=== PATIENT | female | born 1965 | race Caucasian/White ===

== ENCOUNTER 2023-07-31 11:24 | Emergency (ER) | payer OTHER, SELFPAY ==
[2023-07-31 11:26] VITALS: BP 165/98
[2023-07-31 12:19] VITALS: BMI 27.0
[2023-07-31] MEDS: TORADOL 15 MG IV (12:29)
[2023-07-31 12:42] LABS: % Basophils 0.7 % (0-2); % Eosinophils 1.4 % (0-6); % Immature Granulocytes 0.2 % (0-0.5); % Lymphocytes 30.6 % (20.5-51.1); % Neutrophils 59.1 % (42.2-75.2); Absolute Eosinophils 0.1 10^3/uL (0-0.7); Absolute Lymphocytes 1.3 10^3/uL (1.2-3.4); Absolute Monocytes 0.4 10^3/uL (0.1-0.6); Absolute Neutrophils 2.6 10^3/uL (1.4-6.5); Hematocrit 40.1 % (37.0-47.0); Hemoglobin 13.7 g/dL (12.0-16.0); Mean Corp Hgb Conc. 34.2 g/dL (33.0-37.0); Mean Corpuscular Hgb 31.9 pg (27.0-31.0); Mean Corpuscular Volume 93.5 fL (81.0-99.0); Mean Platelet Volume 10.3 fL (7.4-10.4); Nucleated Red Blood Cells % 0 %; Platelet Count 158 10^3/uL (130-400); Red Blood Cell Count 4.29 10^6/uL (4.20-5.40); Red Cell Dist. Width 12.1 % (11.5-14.5); White Blood Cell Count 4.4 10^3/uL (4.8-10.8)
[2023-07-31 12:53] LABS: INR 0.96; PT 12.6 Sec (11.4-14.6)
[2023-07-31 12:54] LABS: HCG, Serum Qualitative Screen Negative
[2023-07-31 12:58] LABS: ALT (SGPT) 23 U/L (0-35); AST (SGOT) 30 U/L (14-36); Albumin 4.5 g/dl (3.5-5.0); Alkaline Phosphatase 60 U/L (38-126); Blood Urea Nitrogen 13 mg/dl (7-17); Calcium 9.8 mg/dl (8.4-10.2); Carbon Dioxide 28 mmol/L (22-30); Chloride 104 mmol/L (98-107); Estimated Creatinine Clearance 73 ml/min; Glucose 92 mg/dl (70-99); Potassium 4.5 mmol/L (3.5-5.1); Sodium 138 mmol/L (135-145); Total Bilirubin 0.8 mg/dl (0.2-1.3); Total Protein 7.3 g/dl (6.3-8.2); eGFR > 60.00
--- NOTE | 2023-07-31 13:10 | ED.GENMED ---
History of Present Illness
<Debi Stanley PA-C - Last Filed: 07/31/23 17:17>
General
Chief Complaint: Vaginal Bleeding
Source: patient
Exam Limitations: none
Time Seen by Provider: 07/31/23 11:33
Nursing documentation reviewed up to this point in time: agreed with
Travel History
Have you had any contact with someone who has COVID-19?: No
Do you have any symptoms of coronavirus? Fever > 100 degrees, chills, cough, shortness of breath, sore throat, loss of taste or smell, muscle aches, or headache?: No
History of Present Illness
History of Present Illness:
PT IS A 57 Y/O F with no h/o chornic medical problems
post menopausal
started having loewr abd cramps ysterday followed by vaginal bleeding, initially light and then got heavier overnight and today
only used 2 pads yesterday and 2 pads today so far
pt has tried tylenol for pain, 1000 x 5 doses since yesterday, last dose 6 am
she has never had fibroids or any heavy bleeding
is followed by [facility] and says she tried calling but they didn't roll picker
she has not had any unexplained weight loss, fever, chills, bleeding from anywhere else
is not anticoagulated.
post menopausal5 yeras.
Past History
<Debi Stanley PA-C - Last Filed: 07/31/23 17:17>
Past History
ED Past Medical History: None
ED Past Surgical History: None
Social History
Tobacco: Non-smoker
Alcohol: None
Drug: None
Personal:
Living: with family
Review of Systems
<Debi Stanley PA-C - Last Filed: 07/31/23 17:17>
Review of Systems
Allergies reviewed?: Yes
All Other Systems: Not applicable
Phy Exam
<Debi Stanley PA-C - Last Filed: 07/31/23 17:17>
Physical Exam
Physical Exam:
GENERAL: Alert , in no apparent distress
EYE: pupils equal and reactive
NECK: Supple
ENT: o/p clr, mmm.
CARDIAC: Regular rate and rhythm
LUNGS: Clear breath sounds bilaterally, no acute respiratory distress, no wheezes/rales/rhonchi
ABDOMEN: Soft, without focal tenderness, no r/g, no cvat, normal bowel sounds
: pt has mod blood in vault, no clots; cervix high difficult to viusualize; discomfort with exam no obvious lacerations
NEUROLOGICAL: Alert and oriented, no focal neuro deficits
SKIN: Warm and dry, skin intact.
PSYCH: Normal and appropriate interaction.
Course
<Debi Stanley PA-C - Last Filed: 07/31/23 17:17>
Orders/Labs/Results
Orders:
Orders
07/31/23 12:10
US Pelvis W Transvag Combined Urgent
Reason For Exam: post menopausal bleeding
07/31/23 12:11
Ketorolac [Toradol] 15 mg IV NOW STA
Test Result ONCE
07/31/23 12:31
Complete Blood Count/With Diff Urgent
Comprehensive Metabolic Panel Urgent
HCG, Serum Qualitative Screen Urgent
Prothrombin Time Urgent
Abnormal Lab Results
07/31/23
12:31
WBC 4.4 L 10^3/uL
(4.8-10.8)
MCH 31.9 H pg
(27.0-31.0)
07/31/23 12:31
07/31/23 12:31
Vital Signs
Initial and Last Documented VS:
Initial Vital Signs
Temp Pulse Resp BP Pulse Ox
98.4 F 62 16 165/98 100
07/31/23 11:26 07/31/23 11:26 07/31/23 11:26 07/31/23 11:26 07/31/23 11:26
Last Documented Vital Signs
Temp Pulse Resp BP Pulse Ox
97.9 F 58 18 143/92 100
07/31/23 16:30 07/31/23 13:30 07/31/23 13:30 07/31/23 13:30 07/31/23 13:30
<Alicia Washington MD - Last Filed: 07/31/23 15:17>
Orders/Labs/Results
Orders:
Orders
07/31/23 12:10
US Pelvis W Transvag Combined Urgent
Reason For Exam: post menopausal bleeding
07/31/23 12:11
Ketorolac [Toradol] 15 mg IV NOW STA
Test Result ONCE
07/31/23 12:31
Complete Blood Count/With Diff Urgent
Comprehensive Metabolic Panel Urgent
HCG, Serum Qualitative Screen Urgent
Prothrombin Time Urgent
Abnormal Lab Results
07/31/23
12:31
WBC 4.4 L 10^3/uL
(4.8-10.8)
MCH 31.9 H pg
(27.0-31.0)
07/31/23 12:31
07/31/23 12:31
Vital Signs
Initial and Last Documented VS:
Initial Vital Signs
Temp Pulse Resp BP Pulse Ox
98.4 F 62 16 165/98 100
07/31/23 11:26 07/31/23 11:26 07/31/23 11:26 07/31/23 11:26 07/31/23 11:26
Last Documented Vital Signs
Temp Pulse Resp BP Pulse Ox
97.9 F 58 18 143/92 100
07/31/23 16:30 07/31/23 13:30 07/31/23 13:30 07/31/23 13:30 07/31/23 13:30
<Debi Stanley PA-C - Last Filed: 07/31/23 17:17>
MDM/Problems Addressed
Differential Diagnosis Includes:
endometrial cancer, endoemetrial hyperplasia
MDM/Problems Addressed:
57 y/o F post menopausal bleeding and cramping started yesterday
only 4 pads total, not soaked through
tried calling ob/gyne but unable to get a call back
vitals stable
nontender abdomen
mild blood in vault
no clots
hg 13
plt normal
US endometrial hpyerplasia
will need bx
spoke with emr implementation specialist ob/gyen for [facility] dr. flores who will take down name and for office to get appt for bx
pt aware of findings as well as her ovarian cyst.
<Debi Stanley PA-C - Last Filed: 07/31/23 17:17>
*Critical Care Note
Total Time (30-74mins, 75-104mins- exclusive of procedures): Not Applicable
ED Attending Note
<Debi Stanley PA-C - Last Filed: 07/31/23 17:17>
-
Portions of this chart may have been created with voice recognition software.� Occasional wrong word or��sound alike� substitutions may have occurred due to the inherent limitations of voice recognition software.
<Alicia Washington MD - Last Filed: 07/31/23 15:17>
ED Attending Note
Patient seen and examined by attending physician: Yes
I performed the substantive portion of visit, reviewed & personally made and approve the management plan that is documented in note by myself or ROSA.: Yes
ED Attending Note:
Patient appears well and hemodynamically stable. Hemoglobin is normal. Ultrasound shows thickened endometrium. Explained to patient she will definitely need to follow-up with her general adjuster soon as soon as possible for likely endometrial
biopsy. Abdomen is soft. Patient is breathing comfortably.
Discharge Plan
Departure
Patient Disposition: Home (Routine Discharge)
Date of Disposition: 07/31/23
Time of Disposition: 15:25
Patient with high blood pressure during this ER visit?: No
Condition: Fair
Covid-19: Not Applicable
Discharge Problem:
Post-menopausal bleeding
Instructions: Bleeding After Menopause
Referrals:
Fausto Abarca MD [Family Provider] -
Christie Warner MD [Active] - Follow up in 2-3 days
Stand Alone Forms: Return to Work
Activity Restrictions/Additional Instructions:
YOUR BLOOD COUNT WAS NORMAL
YOU SHOULD FOLLOW UP THIS WEEK WITH OB/GYNE AND THEY WILL NEED TO SCHEDLUE YOU TO HAVE A BIOPSY OF THE LINING OF YOUR UTERUS (ENDOMETRIUM) WHICH LOOKS THICKENED ON THE ULTRASOUND
RETURN FOR: SOAKING THROUGH A PAD FRONT TO BACK, SIDE TO SIDE, OVER AN HOUR FOR 2 HOURS IN A ROW OR MORE, PASSING OUT,S EVERE PAIN OR ANY CONCERNS
OTHERWISE UNFORTUANTELY YOU CAN CONTINUE TO BLEED.
Interventions
Interventions:
*Risk Screen - Suicide Last Done: 07/31/23 11:26
*General Assessment Last Done: 07/31/23 11:26
*Neglect/Abuse Screening Last Done: 07/31/23 11:26
ED- Fall Risk Assessment Last Done: 07/31/23 13:41
*ED COVID-19 Vaccine History Last Done: 07/31/23 12:21
*Nursing Disposition Last Done: 07/31/23 16:30
ED-Female Genitourinary Assessment Last Done: 07/31/23 13:41
Discharge Date and Time
Discharge Date/Time: 07/31/23 16:31
[2023-07-31 13:30] VITALS: BP 143/92
== END 2023-07-31 16:31 | disposition home or self-care (01) ==
LOC: EMR 11:24
PROVIDERS: Physician Assistant; EMERGENCY PHYSICIAN Emergency Medicine; FAMILY PHYSICIAN Family Medicine
DX: N95.0 Postmenopausal bleeding (principal)
CPT/HCPCS: 99284; 96374; 76830; 76856; 80053; 84703; 85025; 85610

== ENCOUNTER 2024-06-02 06:14 | Day surgery (SDC) | payer OTHER, SELFPAY | END 2024-06-02 12:08 | disposition home or self-care (01) | LOC: GI 06:14 | PROVIDERS: ATTENDING PHYSICIAN Specialist | DX: Z12.11 Encounter for screening for malignant neoplasm of colon (principal); D12.2 Benign neoplasm of ascending colon | CPT/HCPCS: 45385; 88305 ==

== ENCOUNTER → 2024-07-18 16:41 | Outpatient (REF) | payer OTHER, SELFPAY | LOC: WDC 16:41 | PROVIDERS: ATTENDING PHYSICIAN Obstetrics & Gynecology; FAMILY PHYSICIAN Family Medicine | DX: Z12.31 Encounter for screening mammogram for malignant neoplasm of breast (principal) | CPT/HCPCS: 77063; 77067 ==